=== PATIENT | male | born 1960 | race Caucasian/White ===

== ENCOUNTER 2017-02-15 08:56 | Day surgery (SDC) | payer OTHER ==
[~2017-02-15] VITALS: Ht 172.7 cm; Wt 96.7 kg
[2017-02-15 10:05] VITALS: Ht 172.7 cm; Wt 96.7 kg
[2017-02-15] MEDS ORDERED: CHOLESTEROL MED (10:07)
[2017-02-15] MEDS ORDERED: ASPI81TA3 PO (10:07)
[2017-02-15 10:47] VITALS: BP 137/77; PULSE 52; RESP 19
[2017-02-15] MEDS ORDERED: PROPOFOL 40 ML ONE (11:08)
--- NOTE | 2017-02-15 11:33 | GILP ---
DATE OF PROCEDURE: NAME OF PROCEDURE: Colonoscopy. SURGEON: Willian Damian MD PREOPERATIVE DIAGNOSIS: Screening colonoscopy. POSTOPERATIVE DIAGNOSES: 1. Colonoscopy all the way to the cecum. 2. Internal hemorrhoids. 3. No colon neoplasm was identified. INDICATION FOR THE PROCEDURE: Mr. Max Lockhart is a 56-year-old male patient who was scheduled for s creening colonoscopy. CONSENT: The procedure and possible complications were well explained to the patient, he understood and consented to the procedure. DESCRIPTION OF PROCEDURE: Under the influence of anesthesia, the colonoscope was carefully introduc ed in the rectum and under direct vision, it was advanced all the way to the cecum. FINDINGS: The patient had internal hemorrhoids. No colon neoplasm was identified. He tolerated the procedure very well and there was no complication from the procedure. At the end o f the procedure, he was awake with stable vital signs and he was discharged home to the care of his family. IMPRESSION: 1. Colonoscopy all the way to the cecum. 2. Internal hemorrhoids. 3. No colon neoplasm was identified. PLAN: Next screening colonoscopy in 10 years. Dictated By: WILLIAN TURNER/MAC Conf#: [id number] DID#: [id number]
[2017-02-15 11:35] VITALS: BP 117/74; RESP 20
== END 2017-02-15 15:24 | disposition home or self-care (01) ==
LOC: GIL 08:56 → MERGE 08:56 → GIL 09:00
PROVIDERS: ATTEND Internal Medicine Gastroenterology
DX: Z12.11 Encounter for screening for malignant neoplasm of colon (principal); K64.8 Other hemorrhoids; E78.5 Hyperlipidemia, unspecified; E66.9 Obesity, unspecified; Z68.32 Body mass index [BMI] 32.0-32.9, adult